=== PATIENT | male | born 2000 | race Caucasian/White ===

== ENCOUNTER 2020-07-07 09:16 | Emergency (ER) | payer SELFPAY ==
[~2020-07-07] VITALS: Ht 182.9 cm; Wt 70.4 kg
[2020-07-07 10:44] VITALS: BP 148/64
== END 2020-07-07 10:44 | disposition left against medical advice (07) | DRG 153 ==
LOC: ED 09:16
DX: J02.9 Acute pharyngitis, unspecified (principal); Z20.828 Contact with and (suspected) exposure to other viral communicable diseases; Z91.19 Patient's noncompliance with other medical treatment and regimen